=== PATIENT | female | born 1955 | race Hispanic/Latino ===

== ENCOUNTER 2020-04-18 14:56 | Emergency (ER) | payer SELFPAY ==
[2020-04-18] MEDS ORDERED: ONDANSETRON 4 MG/2 ML INJ IV ONE (16:10)
[2020-04-18] MEDS ORDERED: MORPHINE 2 MG/1 ML INJ IV ONE (16:10)
[2020-04-18] MEDS ORDERED: SODIUM CHLORIDE 0.9% 1000 ML 1,000 ML IV ONE (16:10)
[2020-04-18] MEDS ORDERED: MORPHINE 4 MG/1 ML INJ ONE (16:14)
[2020-04-18] MEDS ORDERED: ONDANSETRON 4 MG/2 ML INJ ONE (16:14)
--- NOTE | 2020-04-18 16:16 | Emergency Department Report ---
ED N/V/D HPI - General Chief complaint: Nausea/Vomiting/Diarrhea Stated complaint: NAUSEA Time Seen by Provider: 04/18/20 15:47 Source: EMS Mode of arrival: Ambulatory Limitations: No Limitations - History of Present Illness Initial comments: 65-year-old female, history of anxiety, presents to ED with nausea, vomiting, diarrhea since this morning. Patient reports diffuse abdominal pain associated with it. She denies any fever, cough, shortness of breath. 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 Patient has not been tested for COVID-19. MD complaint: nausea, vomiting, diarrhea -: This morning Description of Vomiting: food contents Description of Diarrhea: water Associated Abdominal Pain: Yes Location: diffuse Severity: moderate Quality: cramping Consistency: constant Improves with: none Worsens with: none Associated Symptoms: denies: cough, fever/chills, shortness of breath - Related Data Previous Rx's Medication Instructions Recorded Last Taken Type Dicyclomine [Bentyl] 20 mg PO QID PRN #20 tablet 04/18/20 Unknown Rx Ondansetron [Zofran Odt] 4 mg PO Q8HR PRN #20 tab.rapdis 04/18/20 Unknown Rx traMADoL [Ultram] 50 mg PO Q6HR PRN #7 tablet 04/18/20 Unknown Rx Allergies Allergy/AdvReac Type Severity Reaction Status Date / Time ketorolac [From Toradol] AdvReac Unknown Verified 04/18/20 15:47 ED Review of Systems ROS: Stated complaint: NAUSEA Other details as noted in HPI Comment: All other systems reviewed and negative Constitutional: denies: fever Respiratory: denies: cough, shortness of breath Gastrointestinal: abdominal pain, vomiting, diarrhea ED Past Medical Hx - Past Medical History Previous Medical History?: Yes Hx Hypertension: Yes Hx Psychiatric Treatment: Yes (depression and bi polar) Hx Asthma: Yes - Surgical History Past Surgical History?: No - Social History Smoking Status: Never Smoker Substance Use Type: None - Medications Home Medications: Home Medications Medication Instructions Recorded Confirmed Last Taken Type Dicyclomine [Bentyl] 20 mg PO QID PRN #20 tablet 04/18/20 Unknown Rx Ondansetron [Zofran Odt] 4 mg PO Q8HR PRN #20 tab.rapdis 04/18/20 Unknown Rx traMADoL [Ultram] 50 mg PO Q6HR PRN #7 tablet 04/18/20 Unknown Rx ED Physical Exam - General Limitations: No Limitations General appearance: alert, other (Actively retching) - Head Head exam: Present: atraumatic, normocephalic - Eye Eye exam: Present: normal appearance, EOMI - ENT ENT exam: Present: mucous membranes moist - Neck Neck exam: Present: normal inspection - Respiratory Respiratory exam: Absent: respiratory distress - Cardiovascular Cardiovascular Exam: Present: normal rhythm, tachycardia - GI/Abdominal GI/Abdominal exam: Present: soft, tenderness (Mild diffuse tenderness). Absent: distended - Extremities Exam Extremities exam: Present: normal inspection - Neurological Exam Neurological exam: Present: alert, oriented X3 - Psychiatric Psychiatric exam: Present: normal affect, normal mood - Skin Skin exam: Present: warm, dry, intact, normal color ED Course Vital Signs 04/18/20 04/18/20 04/18/20 15:06 15:14 15:16 Temperature 98.6 F Pulse Rate 117 H 123 H Respiratory 14 14 Rate Blood Pressure 161/104 161/104 Blood Pressure 161/104 [Right] O2 Sat by Pulse 98 98 99 Oximetry 04/18/20 04/18/20 04/18/20 15:30 15:46 16:00 Temperature Pulse Rate 124 H 115 H 119 H Respiratory 31 H 19 25 H Rate Blood Pressure 161/104 161/104 161/104 Blood Pressure [Right] O2 Sat by Pulse 99 100 98 Oximetry 04/18/20 04/18/20 04/18/20 16:16 16:30 16:33 Temperature Pulse Rate 119 H Respiratory 21 18 Rate Blood Pressure 161/104 133/90 Blood Pressure [Right] O2 Sat by Pulse 98 99 Oximetry 04/18/20 04/18/20 04/18/20 16:46 17:00 17:16 Temperature Pulse Rate 122 H 117 H 118 H Respiratory 14 12 15 Rate Blood Pressure 133/90 133/90 133/90 Blood Pressure [Right] O2 Sat by Pulse 98 99 99 Oximetry 04/18/20 04/18/20 04/18/20 17:30 18:02 18:16 Temperature Pulse Rate 116 H 122 H Respiratory 18 19 Rate Blood Pressure 133/90 133/90 133/90 Blood Pressure [Right] O2 Sat by Pulse 99 98 94 Oximetry 04/18/20 04/18/20 18:38 19:07 Temperature 98.6 F Pulse Rate 118 H 98 H Respiratory 13 18 Rate Blood Pressure Blood Pressure 134/86 [Right] O2 Sat by Pulse 99 100 Oximetry ED Medical Decision Making - Lab Data Result diagrams: 04/18/20 16:26 04/18/20 16:26 - Radiology Data Radiology results: report reviewed, image reviewed - Medical Decision Making 65-year-old female with abdominal pain, vomiting and diarrhea since this morning. Patient given IV fluids, morphine, Zofran. Patient also reported feeling very anxious, has history of anxiety. She did receive Ativan and is feeling much better. Labs unremarkable, except for WBCs of 14. CT abdomen pelvis negative for any acute intra-abdominal findings. Patient feels okay with discharge at this time. Will discharge with prescriptions. Outpatient follow- up advised. Return precautions given. Patient has also been advised to obtain outpatient COVID testing since she has had close contact with COVID positive patients. - Differential Diagnosis Viral illness, bowel obstruction, UTI, diverticulitis Critical care attestation.: If time is entered above; I have spent that time in minutes in the direct care of this critically ill patient, excluding procedure time. ED Disposition Clinical Impression: Abdominal pain, Vomiting and diarrhea Disposition: -01 TO HOME OR SELFCARE Is pt being admited?: No Condition: Stable Instructions: Abdominal Pain (ED), Gastroenteritis (ED) Referrals: PRIMARY MD SAMANTHA [Primary Care Provider] - 3-5 Days [facility] [Provider Group] - 3-5 Days Time of Disposition: 19:50
[2020-04-18 16:53] LABS: Basophils # (Auto) 0.1 K/mm3 (0.0-0.1); Basophils % (Auto) 0.5 % (0.0-1.8); Eosinophils % (Auto) 0.2 % (0.0-4.3); Hematocrit 37.5 % (30.3-42.9); Lymphocytes # (Auto) 1.9 K/mm3 (1.2-5.4); Lymphocytes % (Auto) 12.9 % (13.4-35.0); Mean Corpuscular HGB Conc 32 % (30-34); Mean Corpuscular Volume 80 fl (79-97); Monocytes # (Auto) 0.7 K/mm3 (0.0-0.8); Monocytes % (Auto) 4.6 % (0.0-7.3); Platelet Count 532 K/mm3 (140-440); Red Blood Count 4.71 M/mm3 (3.65-5.03); Red Cell Distribution Width 21.4 % (13.2-15.2)
[2020-04-18 17:12] LABS: Alanine Aminotransferase 16 units/L (7-56); Albumin 4.5 g/dL (3.9-5); BUN/Creatinine Ratio 23; Blood Urea Nitrogen 18 mg/dL (7-17); Calcium 9.4 mg/dL (8.4-10.2); Hemolysis Index 2
--- NOTE | 2020-04-18 17:13 | XRay Report ---
CHEST AND ABDOMINAL SERIES HISTORY: Chest/abdominal pain. Chest one view: Heart size is normal. The lungs are clear. Two-view abdomen: Gas is scattered throughout the abdomen in a nonobstructive fashion. Negative for f ree air or suspicious calcification. Status post previous cholecystectomy. Signer Name: Johnathan Michaels MD Signed: 04/18/2020 5:09 PM Workstation Name: [id number]
[2020-04-18 17:14] LABS: Bilirubin,Direct < 0.2 mg/dL (0-0.2)
[2020-04-18] MEDS ORDERED: LORazepam 2 MG/ML VIAL IV ONE (18:03)
[2020-04-18] MEDS ORDERED: LORazepam 2 MG/ML VIAL ONE (18:05)
--- NOTE | 2020-04-18 18:23 | Cat Scan Report ---
CT abdomen pelvis w con INDICATION: abd pain, vomiting, diarrhea. TECHNIQUE: All CT scans at this location are performed using the following dose modulation technique: Automated exposure control. CONTRAST: Omnipaque 300, 100 cc IV injection. COMPARISON: None available. CT ABDOMEN: Evaluation of the parenchymal organs demonstrates a probable subcentimeter left renal cys t. The remaining parenchymal organs are unremarkable. Negative for abdominal mass, fluid or inflammation. The bowel is not dilated or thickened. Status post previous cholecystectomy. Biliary dilatation is mild. CT PELVIS: The uterus demonstrates multiple fibroids. A small right ovarian cyst measures 2 cm. Negat tala for pelvic mass, fluid or inflammation. IMPRESSION: 1. Fibroid disease of the uterus. 2. Negative for obstruction or localized inflammation. Signer Name: Johnathan Michaels MD Signed: 04/18/2020 6:19 PM Workstation Name: [id number]
[2020-04-18 19:08] VITALS: BP 134/86
[2020-04-18 19:34] LABS: Bilirubin,Urine NEG (Negative); Blood,Urine NEG (Negative); Color,Urine Yellow (Yellow); Mucus,Urine FEW /HPF; Protein,Urine <15 mg/dL mg/dL (Negative); Urobilinogen,Urine < 2.0 mg/dL (<2.0)
== END 2020-04-18 20:47 | disposition home or self-care (01) ==
LOC: ED 14:56
DX: R10.84 Generalized abdominal pain (principal); R11.2 Nausea with vomiting, unspecified; R19.7 Diarrhea, unspecified; I10 Essential (primary) hypertension; F32.9 Major depressive disorder, single episode, unspecified; J45.909 Unspecified asthma, uncomplicated; Z79.899 Other long term (current) drug therapy; Z88.8 Allergy status to other drugs, medicaments and biological substances
CPT/HCPCS: 36415; 74022; 74177; 80048; 80076; 81001; 83690; 85025; 87086; 96361; 96374; 96375; 99285; J2060; J2270; J2405; J7030; Q9967